=== PATIENT | female | born 1960 | race Caucasian/White ===

== ENCOUNTER 2023-02-09 16:08 | Emergency (ER) | payer OTHER, MEDICARE ==
[~2023-02-09] VITALS: Ht 167.6 cm; Wt 108.9 kg
[2023-02-09 16:14] VITALS: BP 171/112
[2023-02-09] MEDS ORDERED: IBUP600 PO (16:41)
[2023-02-09] MEDS ORDERED: Norco 5-325 Ta1 EACH PO (16:41)
== END 2023-02-10 17:00 | disposition home or self-care (01) ==
LOC: ER 16:08
DX: S42.215A Unspecified nondisplaced fracture of surgical neck of left humerus, initial encounter for closed fracture (principal); W01.10XA Fall on same level from slipping, tripping and stumbling with subsequent striking against unspecified object, initial encounter; I10 Essential (primary) hypertension
CPT/HCPCS: 73030; 73060; 99283-25; A9270